=== PATIENT | male | born 1980 | race Caucasian/White ===

== ENCOUNTER 2019-01-31 14:07 | Emergency (ER) | payer OTHER, SELFPAY ==
[2019-01-31 14:08] VITALS: BP 130/75; PULSE 72; RESP 16; TEMP 36.2; O2SAT 98; BMI 20.2
[2019-01-31 15:33] LABS: Absolute Neutrophil Count 5.8 X10^3/uL (2.0-7.7); Basophil# 0.05 X10^3/uL; Basophil% 0.6 % (0-1); Eosinophil# 0.51 X10^3/uL; Eosinophils% 6.2 % (0-5); Hematocrit 43.2 % (40-54); Hemoglobin 14.3 g/dL (13.0-16.5); Lymphocyte % 14.5 % (19-41); Mean Corp Hgb Conc 33.1 g/dL (32-36); Mean Corpuscular Hgb 30.3 pg (27.0-32.0); Mean Corpuscular Volume 91.5 fL (80-94); Mean Platelet Vol. 12.1 fl (6.2-12.0); Monocyte# 0.68 X10^3/uL; Monocyte% 8.2 % (0-10); NRBC Flagged by Analyzer 0 % (0-5); Neutrophil # 5.81 X10^3/uL (2.7-7.7); Neutrophil % 70.1 % (47-70); Platelet Count 161 K/mm3 (150-450); RBC Distribution Width CV 13.1 % (11.6-14.6); RBC Distribution Width SD 44.3 fl (35.1-43.9); Red Blood Count 4.72 M/mm3 (4.6-6.2); White Blood Count 8.3 K/mm3 (4.4-11.0)
[2019-01-31 15:49] LABS: Anion Gap 4 (5-15); BUN 17 mg/dL (7-18); BUN/Creat Ratio 16.7 RATIO (10-20); Calcium,Total 8.7 mg/dL (8.5-10.1); Chloride 108 mmol/L (98-107); Creatinine, Serum 1.02 mg/dL (0.70-1.30); EST Glomerular Filtration Rate 88 mL/min (>60); Est Glom Filt Rate - Afr Amer 106 mL/min (>60); Estimated Creatinine Clearance 93.32 ml/min; Glucose 101 mg/dL (74-106); Potassium 4.3 mmol/L (3.5-5.1); Sodium Level 139 mmol/L (136-145)
--- NOTE | 2019-01-31 16:03 | CT_ITS ---
STUDY: CT BRAIN WITHOUT CONTRAST REASON FOR EXAM: Male, 38 years old. Syncopal episode RADIATION DOSAGE (If Supplied By Facility): CTDIvol = ( 44.99 ) mGy, DLP = ( 762.36 ) mGycm TECHNIQUE: Transaxial CT imaging of the brain was performed without administration of intravenous contrast material. Individualized dose optimization techniques were used for this CT. COMPARISON: No relevant priors. FINDINGS: Brain parenchyma is without focal lesions, mass effect, acute intracranial hemorrhage, extra parenchymal fluid collections, hydrocephalus or herniation. The skull is intact. CT/Brain/Head without Contrast IMPRESSION: 1. Normal CT brain. Electronically Signed: Seven Moura, at 16:30 EDT Tel , Service support ,
--- NOTE | 2019-01-31 16:03 | EKG12_ITS ---
Test Reason : SYNCOPE Blood Pressure : / mmHG Vent. Rate : 058 BPM Atrial Rate : 058 BPM P-R Int : 168 ms QRS Dur : 092 ms QT Int : 372 ms P-R-T Axes : 068 090 062 degrees QTc Int : 365 ms Sinus bradycardia Rightward axis Incomplete right bundle branch block Borderline ECG Confirmed by MITZI MOLINA, MINGO ([id number]), photographic editor DASHAWN DELUNA ([id number]) on 02/02/2019 10:11:15 AM Referred By: JAMIE Confirmed By:MINGO CARTAGENA MD
--- NOTE | 2019-01-31 16:16 | ED.VISSUMM ---
- ER Visit Summary Date of Service: 01/31/19 Chief Complaint: Passed out History of Present Illness: The patient is a 38 M history of multiple prior syncopal events in the past. He is never been on a Holter and event monitor. An event on Thursday C4 to come on he laid down in his garage when he woke up he said he had abrasions on his elbows and was concerned he may have had had a seizure. It was unwitnessed. He is never had a seizure before that he is aware of. His father also has similar syncopal events but no seizure history. Patient has no cardiac history. Physical Examination: Young male no acute distress vital signs are stable afebrile. HEENT exam normal no bite shea on his tongue. Neck nontender. Lungs clear to auscultation bilaterally. Heart regular rhythm no murmur. Abdomen soft nontender. Extremities moves all 4. Neurovascular intact. 5-5 mailroom associate strength dorsi plantar flexion intact. Neck nontender. Skin normal. Neurologic exam normal. NIH is 0. Fingertip to nose [id number] all within normal limits. Equal symmetrical mailroom associate strength equal and symmetrical dorsi and plantar flexion. Test Results: CBC normal white count 8. Hemoglobin 14. Chemistries normal normal BUN, creatinine and gap. CT brain no acute abnormality and read as normal by the radiologist reviewed by me. EKG sinus bradycardia rate of 58 with no acute signs of VA or ischemia. Orthostatic vital signs were normal. Emergency Department Course and Treatment: Repeat exam the patient is doing well at 1726. He will need outpatient follow-up. Possible event or cardiac catheterization technologist. Follow up with cardiology Treatment Plan: Cardiology referral. Disposition: Discharge Impression: Acute syncope of uncertain etiology This note was generated with [employer] dictation software. It may contain incorrect words, spelling, and punctuation that were not noted in review of the chart prior to signing ED Disposition - Plan for ED Patient: Disposition: Home or Assisted Living Instructions: SYNCOPE, Unk Cause Referrals: Shaq Trinh MD [STAFF PHYSICIAN] - As soon as possible Juanito Mccrary MD [STAFF PHYSICIAN] - As soon as possible Additional Instructions: Off work today. Follow-up with her primary care physician for further evaluation. Also follow-up with Dr. Thony Trinh of cardiology for possible event or Holter monitor.
[2019-01-31 16:28] VITALS: BP 110/60; BP 111/80; BP 125/82; PULSE 53; PULSE 56; PULSE 65
--- NOTE | 2019-01-31 17:27 | DCINST.ED_ITS ---
ED Disposition - Plan for ED Patient: Disposition: Home or Assisted Living Instructions: SYNCOPE, Unk Cause Referrals: Juanito Mccrary MD [STAFF PHYSICIAN] - As soon as possible Shaq Trinh MD [STAFF PHYSICIAN] - As soon as possible Additional Instructions: Off work today. Follow-up with her primary care physician for further evaluation. Also follow- up with Dr. Thony Trinh of cardiology for possible event or Holter monitor.
[2019-01-31 17:38] VITALS: BP 123/76; RESP 18
== END 2019-01-31 17:38 | disposition home or self-care (01) ==
PROVIDERS: Emergency Provider Emergency Medicine
DX: R55 Syncope and collapse (principal); R00.1 Bradycardia, unspecified; Z72.0 Tobacco use
CPT/HCPCS: 70450; 80048; 85025; 93005; 99283; A4216